=== PATIENT | male | born 1935 | race Caucasian/White ===

== ENCOUNTER 2016-05-29 09:19 | Emergency (ER) | payer MEDICARE, OTHER ==
[~2016-05-29 09:19] MED LIST: AMITRIPTYLINE H25 M1 PO; AMITRIPTYLINE H25 M2 PO; ASPIR LOW81 MG PO; ASPIRIN E.C. 8181 MG PO; CARVEDILOL12.5 MG PO; CILOSTAZOL50 M1 PO; CILOSTAZOL50 MG PO; CLARITIN10 M1 PO; CLOPIDOGREL PO; CLOPIDOGREL75 MG PO; COENZYME Q-10100 M1 PO; COREG12.5 M1 PO; CRESTOR20 MG PO; CRESTOR40 MG PO; CYMBALTA60 MG PO; EFFEXOR XR150 M1 PO; EFFEXOR XR75 M2 PO; FELODIPINE10 MG PO; FEROSUL325 M1 PO; FERROUS SU325 MG/TAB PO; FLAX OIL1000 M1 PO; FLONASE ALLERG9.9 ML NAS; FLOVENT DI50 MCG/Act IH; GLUCOPHAGE1000 MG PO; GOOD NEIGHBOR P20 MG PO; GOOD NEIGHBOR100 M7 PO; HUMALOG KW200 UNIT/1 SC; HUMALOG KW200 UNIT/1 SQ; HUMALOG100 U/ML; IMDUR 30MG30 MG/TAB PO; ISOSORBIDE DINI30 M1 PO; LANTUS100 U/ML; LANTUS100 U/ML SC; LEVOTHYROXINE PO; MICARDIS80 MG PO; MULTI VITAMINS1 TAB PO; NEURONTIN400 MG PO; NEURONTIN800 M1 PO; NEURONTIN800 MG/TAB PO; OXYCODONE PO; OXYCONTIN80 M1 PO; PEPCID 20MG TAB20 MG PO; PHENERGAN25 MG RC; SKELAXIN 800MG800 MG PO; SKELAXIN400 MG PO; SUPER EPA W/BO400 MG PO; SYNTHROID0.05 MG PO; VENLAFAXINE150 MG PO
[2016-05-29] MEDS ORDERED: PRECOSE 25MG25 MG PO (10:28)
[2016-05-29] MEDS ORDERED: GOOD NEIGHBOR500 M2 PO (10:28)
[2016-05-29] MEDS ORDERED: ATORVASTATIN CA40 MG PO (10:29)
[2016-05-29] MEDS ORDERED: ZIAC 10-6.25 M1 EACH PO (10:31)
[2016-05-29] MEDS ORDERED: VITAMIN D 1001000 IU PO (10:32)
[2016-05-29] MEDS ORDERED: COENZYME Q10100 M1 PO (10:33)
[2016-05-29] MEDS ORDERED: CYMBALTA60 M1 PO (10:34)
[2016-05-29] MEDS ORDERED: LUNESTA3 M1 PO (10:34)
[2016-05-29] MEDS ORDERED: GOOD NEIGHBOR P20 MG PO (10:35)
[2016-05-29] MEDS ORDERED: MUCINEX1200 MG PO (10:36)
[2016-05-29] MEDS ORDERED: GLUCAGEN DIAGNOS1 MG SC (10:36)
[2016-05-29] MEDS ORDERED: LANTUS SOLOS100 U/ML SC (10:37)
[2016-05-29] MEDS ORDERED: ISOSORBIDE MONO60 M1 PO (10:38)
[2016-05-29] MEDS ORDERED: INSULIN-HUMA100 U/ML SC (10:38)
[2016-05-29] MEDS ORDERED: NIFEDIPINE ER90 M2 PO (10:39)
[2016-05-29] MEDS ORDERED: PREDNISONE10 MG PO (10:40)
[2016-05-29] MEDS ORDERED: PANTOPRAZOLE SO40 MG PO (10:40)
[2016-05-29] MEDS ORDERED: CARAFATE1 GM/10 M1 PO (10:41)
[2016-05-29] MEDS ORDERED: DEMADEX20 MG PO (10:42)
[2016-05-29] MEDS ORDERED: ULTRAM50 M1 PO (10:46)
[2016-05-29] MEDS ORDERED: STIOLTO RESPIMAT4 GM IH (10:47)
[2016-05-29] MEDS ORDERED: TUSS PO (10:47)
[2016-05-29 11:40] VITALS: BP 147/73
== END 2016-05-29 11:51 | disposition short-term general hospital (02) ==
LOC: ED 09:19
DX: I21.4 Non-ST elevation (NSTEMI) myocardial infarction (principal); N17.9 Acute kidney failure, unspecified; Z87.891 Personal history of nicotine dependence; E11.9 Type 2 diabetes mellitus without complications; Z79.4 Long term (current) use of insulin; I25.10 Atherosclerotic heart disease of native coronary artery without angina pectoris; I10 Essential (primary) hypertension
CPT/HCPCS: J1644; J2270; J3010; J7030